=== PATIENT | female | born 1995 | race Caucasian/White ===

== ENCOUNTER 2018-05-05 01:20 | Emergency (ER) | payer MEDICAID ==
[~2018-05-05] VITALS: Ht 154.9 cm; Wt 64.0 kg
[2018-05-05 02:18] VITALS: BP 105/75
[2018-05-05] MEDS ORDERED: IBUPROFEN 600MG TABLET PO ONE (02:45)
[2018-05-05] MEDS ORDERED: CYCLOBENZAPRINE 10MG TABLET PO ONE (02:45)
== END 2018-05-05 03:27 | disposition home or self-care (01) ==
LOC: ER 01:20
DX: S16.1XXA Strain of muscle, fascia and tendon at neck level, initial encounter (principal); S70.01XA Contusion of right hip, initial encounter; F32.9 Major depressive disorder, single episode, unspecified; M79.671 Pain in right foot; R51 Headache; F12.10 Cannabis abuse, uncomplicated; V49.49XA Driver injured in collision with other motor vehicles in traffic accident, initial encounter; Y93.89 Activity, other specified; Y92.89 Other specified places as the place of occurrence of the external cause; Y99.8 Other external cause status
CPT/HCPCS: 81025; 99283